=== PATIENT | female | born 1990 | race Caucasian/White ===

== ENCOUNTER 2017-08-10 10:47 | Emergency (ER) | payer OTHER ==
[~2017-08-10] VITALS: Ht 167.6 cm; Wt 56.4 kg
[2017-08-10] MEDS ORDERED: MOTRIN800 MG PO (13:28)
[2017-08-10 13:34] VITALS: BP 107/65
== END 2017-08-10 13:45 | disposition home or self-care (01) | DRG 90 ==
LOC: ED 10:47
DX: S06.0X9A Concussion with loss of consciousness of unspecified duration, initial encounter (principal); V86.55XA Driver of 3- or 4- wheeled all-terrain vehicle (ATV) injured in nontraffic accident, initial encounter